=== PATIENT | male | born 2000 | race Caucasian/White ===

== ENCOUNTER 2022-03-17 15:36 | Emergency (ER) | payer SELFPAY ==
[2022-03-17] MEDS: Sodium Chloride 0.9% 10 ML Syringe FLUSH PRN (15:51)
[2022-03-17 16:12] LABS: CHLORIDE,CL 103 mmol/L (98-107); SODIUM,NA 139 mmol/L (136-145)
[2022-03-18 07:04] LABS: ESTIMATED GFR 126 mL/min (>=60)
== END 2022-03-17 16:35 | disposition home or self-care (01) ==
LOC: KA.ED 15:36
DX: R07.89 Other chest pain (principal); R00.2 Palpitations
CPT/HCPCS: 36415; 71046; 80053; 84484; 85025; 93005; 93010; 99284; 99285-25; J3490